=== PATIENT | male | born 1955 | race Caucasian/White ===

== ENCOUNTER 2018-04-25 07:38 | Outpatient (CLI) | payer OTHER ==
[~2018-04-25 07:38] MED LIST: ALTACE10 MG; ASA-EC81 MG PO; ASA325 M1; GLIPIZIDE2.5 MG/BO1; HUMALOG MIX 75/10 ML; HYZAAR 50/12.51 TAB PO; LANTUS SOLOSTAR3 ML; LIPITOR20 MG PO; LIPITOR80 MG; LOTREL 5/40 MG1 CAP; METFORMIN HYDRO25 GM; METOPROLOL SUCC25 MG; PLAVIX75 MG; PLAVIX75 MG PO; [UNRECOGNIZED DRUG - OTHER]
== END 2018-04-25 12:42 | disposition home or self-care (01) ==
LOC: NUCLEAR 07:38
DX: I25.10 Atherosclerotic heart disease of native coronary artery without angina pectoris (principal); I20.0 Unstable angina; E78.2 Mixed hyperlipidemia; I11.9 Hypertensive heart disease without heart failure; I50.42 Chronic combined systolic (congestive) and diastolic (congestive) heart failure
CPT/HCPCS: 78452; 93017; A9500; J0153; 93306